=== PATIENT | male | born 2000 | race Caucasian/White ===

== ENCOUNTER 2020-01-02 05:21 | Emergency (ER) | payer MEDICAID ==
[~2020-01-02] VITALS: Ht 185.4 cm; Wt 98.0 kg
[2020-01-02 05:29] VITALS: Ht 185.4 cm; Wt 98.0 kg
[2020-01-02 08:14] VITALS: BP 114/75
== END 2020-01-02 08:14 | disposition home or self-care (01) ==
LOC: ED 05:21
DX: S61.217A Laceration without foreign body of left little finger without damage to nail, initial encounter (principal); S50.811A Abrasion of right forearm, initial encounter; S80.812A Abrasion, left lower leg, initial encounter; W17.89XA Other fall from one level to another, initial encounter; Y93.89 Activity, other specified; Y92.89 Other specified places as the place of occurrence of the external cause; Y99.8 Other external cause status
CPT/HCPCS: 90715; A4570; J2001; Q0092